=== PATIENT | male | born 1955 ===

== ENCOUNTER 2016-11-22 13:20 | Emergency (ER) | payer OTHER ==
[2016-11-22] MEDS ORDERED: Lidocaine 5% Patch TD STA (14:46)
[2016-11-22] MEDS ORDERED: Lidocaine 5% Patch TD ONE (14:55)
--- NOTE | 2016-11-22 14:56 | C.PDOC ---
History Of Present Illness 61 yr old male presents to the ER with complaints of right lower back pain for the past 4 days. Patient states he was drinking alcohol 4 days ago, stood up, felt dizzy and fell onto his back, did not hit head. . Patient admits he did no take any pain medicine till today, states took a Flexeril which was left over from prior back pain with mild relief. Patient denies chest pain, SOB, nausea, vomiting, saddle anesthesia, dysuria, incontinence, leg pain, weakness or numbness. Time Seen by Provider: 11/22/16 14:26 Chief Complaint (Nursing): Back Pain History Per: Patient History/Exam Limitations: no limitations Onset/Duration Of Symptoms: Days (4) Past Medical History Reviewed: Historical Data, Nursing Documentation, Vital Signs Vital Signs: Last Vital Signs Temp 98.5 F 11/22/16 16:32 Pulse 76 11/22/16 16:32 Resp 18 11/22/16 16:32 BP 160/90 H 11/22/16 16:32 Pulse Ox 100 11/25/16 00:19 - Medical History PMH: HTN, Kidney Stones Family History: States: No Known Family Hx - Social History Hx Alcohol Use: Yes Hx Substance Use: No Review Of Systems Cardiovascular: Negative for: Chest Pain Respiratory: Negative for: Shortness of Breath Gastrointestinal: Negative for: Nausea, Vomiting Genitourinary: Negative for: Dysuria, Incontinence Musculoskeletal: Positive for: Back Pain (Right lower back pain ). Negative for : Leg Pain Neurological: Negative for: Weakness, Numbness Physical Exam - Physical Exam Appears: Non-toxic, No Acute Distress Skin: Warm, Dry, No Rash Head: Atraumatic, Normacephalic Oral Mucosa: Moist Neck: Normal, Normal ROM, Supple Chest: Symmetrical, No Tenderness Cardiovascular: Rhythm Regular, No Murmur Respiratory: Normal Breath Sounds, No Rales, No Rhonchi, No Stridor, No Wheezing Gastrointestinal/Abdominal: Soft, No Tenderness Back: Normal Inspection, Other ((+) Right lumbar tenderness.) Extremity: Normal ROM, No Tenderness, No Swelling Neurological/Psych: Oriented x3, Normal Speech, Normal Cognition, Normal Motor, Normal Sensation ED Course And Treatment O2 Sat by Pulse Oximetry: 100 (RA ) Pulse Ox Interpretation: Normal Medical Decision Making Medical Decision Making: PLAN: * Lidoderm TD * Tenormin PO * Tylenol PO * Toradol IM 352 pm pt feeling better, will d/c with meds, f/u pmd Disposition Counseled Patient/Family Regarding: Diagnosis, Need For Followup, Rx Given - Disposition Referrals: Tomás Roberts MD [Staff Provider] - Disposition: HOME/ ROUTINE Disposition Time: 16:21 Condition: IMPROVED Additional Instructions: Warm compreses to right lower back several times a day. Take medications as prescribed; Cyclobenzaprine makes you sleepy= do not drive with this. No heavy lifting/ Follow up with Dr Roberts in a few day Prescriptions: Cyclobenzaprine [Cyclobenzaprine HCl] 10 mg PO Q8 #9 tab Ibuprofen [Motrin] 600 mg PO TID #30 tab Lidocaine 5% [Lidoderm] 1 ea TD DAILY #10 patch Instructions: Back Exercises (ED) Forms: [employer] (Sudanese), Gen Discharge Inst Qatari Print Language: MONTENEGRIN - Clinical Impression Clinical Impression: Low back pain, Lumbar sprain - PA / SYSTEMS SPECIALIST / Resident Statement MD/DO has reviewed & agrees with the documentation as recorded. - Scribe Statement The provider has reviewed the documentation as recorded by the Scribe Zarina Lennon All medical record entries made by the Bestibtalya were at my direction and personally dictated by me. I have reviewed the chart and agree that the record accurately reflects my personal performance of the history, physical exam, medical decision making, and the department course for this patient. I have also personally directed, reviewed, and agree with the discharge instructions and disposition.
[2016-11-22 16:33] VITALS: BP 160/90; PULSE 76; RESP 18; TEMP 98.5
[2016-11-25 00:20] VITALS: O2SAT 100
== END 2016-11-22 16:32 | disposition home or self-care (01) ==
LOC: C.ER 13:20
DX: S33.5XXA Sprain of ligaments of lumbar spine, initial encounter (principal); W18.30XA Fall on same level, unspecified, initial encounter; Y93.9 Activity, unspecified; Y92.9 Unspecified place or not applicable
CPT/HCPCS: 96372; 99284; J1885